=== PATIENT | male | born 1945 | race Caucasian/White ===

== ENCOUNTER 2017-05-26 11:53 | Observation (INO) | payer MEDICARE ==
[~2017-05-26] VITALS: Ht 188 cm; Wt 136.2 kg
[2017-05-26] VITALS (7 sets, daily range): BP systolic 129–183; BP diastolic 67–91; PULSE 62–69; RESP 17–20; TEMP 97.4–98.8; O2SAT 94–97
--- NOTE | 2017-05-26 12:46 | RADRPT ---
EXAM DATE/TIME: 05/26/2017 12:32 [place] COMPARISON: No previous studies available for comparison. INDICATIONS : Short of breath, lower leg pain x2 days. MEDICAL HISTORY : high cholesterol SURGICAL HISTORY : 2 coronary artery stents ENCOUNTER: Initial ACUITY: 2 days PAIN SCORE: 0/10 LOCATION: Bilateral chest FINDINGS: PA and lateral views of the chest demonstrate the lungs to be symmetrically aerated without evidence of mass, infiltrate or effusion. The cardiomediastinal contours are unremarkable. Osseous structure s are intact. CONCLUSION: 1. No acute cardiopulmonary disease. Kwan Jimenez MD on May 26, 2017 at 12:42 Board Certified Radiologist. This report was verified electronically.
[2017-05-26 12:50] LABS: AUTOMATED NEUTROPHIL # 7.4 TH/MM3 (1.8-7.7); BASOPHIL # 0.1 TH/MM3 (0-0.2); BASOPHIL % 0.6 % (0.0-2.0); EOSINOPHIL # 0.2 TH/MM3 (0-0.4); EOSINOPHIL % 2.3 % (0.0-4.0); HEMATOCRIT 27.9 % (39.0-51.0); HEMOGLOBIN 9.1 GM/DL (13.0-17.0); LYMPH % 15.8 % (9.0-44.0); LYMPHOCYTE # 1.6 TH/MM3 (1.0-4.8); MEAN CELL VOLUME 82.5 FL (80.0-100.0); MEAN CORPUSCULAR HGB CONC 32.7 % (32.0-36.0); MEAN PLATELET VOLUME 7.6 FL (7.0-11.0); MONO % 7.2 % (0.0-8.0); MONOCYTE # 0.7 TH/MM3 (0-0.9); NEUT % 74.1 % (16.0-70.0); PLATELET COUNT 271 TH/MM3 (150-450); RED BLOOD COUNT 3.38 MIL/MM3 (4.50-5.90); RED CELL DISTRIBUTION WIDTH 15.9 % (11.6-17.2)
[2017-05-26 12:56] LABS: PROTHROMBIN TIME - PATIENT 10.6 SEC (9.8-11.6)
[2017-05-26 13:04] LABS: BICARBONATE 23.9 MEQ/L (21.0-32.0); BLOOD UREA NITROGEN 15 MG/DL (7-18); CALCIUM 8.5 MG/DL (8.5-10.1); CHLORIDE 106 MEQ/L (98-107); CREATININE 1.07 MG/DL (0.60-1.30); GLOMERULAR FILTRATION RATE 68 ML/MIN (>89); GLUCOSE,RANDOM 149 MG/DL (74-106); SODIUM (NA) 139 MEQ/L (136-145)
[2017-05-26 13:08] LABS: TROPONIN I LESS THAN 0.02 NG/ML (0.02-0.05)
--- NOTE | 2017-05-26 13:38 | PD ---
HPI Chief Complaint: Respiratory Symptoms Time Seen by Provider: 13:34 Travel History International Travel<30 days: No Contact w/Intl Traveler<30days: No Traveled to known affect area: No History of Present Illness HPI 72-year-old male with history of CAD, stent 2 placed in February 2017, hypertension and diabetes presents to emergency department for evaluation of significant shortness of breath with any activity. Patient states he is visiting from [place]. He saw his sword swallower on Monday prior to leaving. He had mentioned to his sword swallower a twinge like pain in his chest while working out since his stents were placed. Party Plan Demonstrator increased his carvedilol to twice a day and the patient has been taking this all week. He states he noticed since beginning and twice today he developed some shortness of breath with activity that this morning when he got up he went to walk across the street to get breakfast and he had to stop several times due to being short of breath. He denies any pain. No nausea or vomiting. No cough or chest congestion. There is no sensation of lightheadedness. The patient states he has noticed a darkening of his stools over last 2 weeks. He attributed this to getting older. He denies any abdominal pain. No nausea or vomiting. No history GI bleed. Last colonoscopy was last year. He has no other symptoms to report at this time. PFSH Past Medical History Hx Anticoagulant Therapy: Yes Cardiovascular Problems: Yes High Cholesterol: Yes Diabetes: Yes Patient Takes Glucophage: No Hypertension: Yes Respiratory: Yes Past Surgical History Cardiac Surgery: Yes (STENT X 2 ) Other Surgery: Yes (AMPUTATION TO SOME TOES ) Social History Alcohol Use: Yes Tobacco Use: No Substance Use: No Allergies-Medications (Allergen,Severity, Reaction): Coded Allergies: No Known Allergies (Verified Allergy, Unknown, 05/26/17) Review of Systems Except as stated in HPI: all other systems reviewed are Neg Physical Exam Narrative GENERAL: Well-nourished elderly male patient, appears nontoxic sitting in bed in no acute distress. SKIN: Focused skin assessment warm/dry. HEAD: Atraumatic. Normocephalic. EYES: Pupils equal and round. No scleral icterus. No injection or drainage. ENT: No nasal bleeding or discharge. Mucous membranes pink and moist. NECK: Trachea midline. No JVD. CARDIOVASCULAR: Regular rate and rhythm. No murmur appreciated. RESPIRATORY: No accessory muscle use. Clear but diminished bases likely due to girth. Breath sounds equal bilaterally. GASTROINTESTINAL: Abdomen soft, non-tender, nondistended. Hepatic and splenic margins not palpable. Ventral hernia, soft RECTAL EXAM: No masses or tenderness, stool is dark black-brown. MUSCULOSKELETAL: No obvious deformities. No clubbing. No cyanosis. 2+ bilateral lower extremity edema. NEUROLOGICAL: Awake and alert. No obvious cranial nerve deficits. Motor grossly within normal limits. Normal speech. PSYCHIATRIC: Appropriate mood and affect; insight and judgment normal. Data Data Last Documented VS Vital Signs Date Time Temp Pulse Resp B/P (MAP) Pulse Ox O2 Delivery O2 Flow Rate FiO2 05/26/17 13:29 64 20 183/87 (119) 96 Room Air 05/26/17 11:56 98.0 Orders Orders Electrocardiogram (05/26/17 12:07) Complete Blood Count With Diff (05/26/17 12:07) Basic Metabolic Panel (Bmp) (05/26/17 12:07) Ckmb (Isoenzyme) Profile (05/26/17 12:07) Troponin I (05/26/17 12:07) Prothrombin Time / Inr (Pt) (05/26/17 12:07) Act Partial Throm Time (Ptt) (05/26/17 12:07) B-Type Natriuretic Peptide (05/26/17 12:07) Chest, Pa & Lat (05/26/17 12:07) CKMB (05/26/17 12:15) CKMB% (05/26/17 12:15) Type And Screen (05/26/17 14:00) Labs Laboratory Tests Test 05/26/17 12:15 White Blood Count 10.0 TH/MM3 Red Blood Count 3.38 MIL/MM3 Hemoglobin 9.1 GM/DL Hematocrit 27.9 % Mean Corpuscular Volume 82.5 FL Mean Corpuscular Hemoglobin 27.0 PG Mean Corpuscular Hemoglobin Concent 32.7 % Red Cell Distribution Width 15.9 % Platelet Count 271 TH/MM3 Mean Platelet Volume 7.6 FL Neutrophils (%) (Auto) 74.1 % Lymphocytes (%) (Auto) 15.8 % Monocytes (%) (Auto) 7.2 % Eosinophils (%) (Auto) 2.3 % Basophils (%) (Auto) 0.6 % Neutrophils # (Auto) 7.4 TH/MM3 Lymphocytes # (Auto) 1.6 TH/MM3 Monocytes # (Auto) 0.7 TH/MM3 Eosinophils # (Auto) 0.2 TH/MM3 Basophils # (Auto) 0.1 TH/MM3 CBC Comment DIFF FINAL Differential Comment Prothrombin Time 10.6 SEC Prothromb Time International Ratio 1.0 RATIO Activated Partial Thromboplast Time 29.2 SEC Blood Urea Nitrogen 15 MG/DL Creatinine 1.07 MG/DL Random Glucose 149 MG/DL Calcium Level 8.5 MG/DL Sodium Level 139 MEQ/L Potassium Level 4.0 MEQ/L Chloride Level 106 MEQ/L Carbon Dioxide Level 23.9 MEQ/L Anion Gap 9 MEQ/L Estimat Glomerular Filtration Rate 68 ML/MIN Total Creatine Kinase 114 U/L Creatine Kinase MB 1.7 NG/ML Troponin I LESS THAN 0.02 NG/ML B-Type Natriuretic Peptide 215 PG/ML MDM Medical Decision Making Medical Screen Exam Complete: Yes Emergency Medical Condition: Yes Medical Record Reviewed: Yes Differential Diagnosis CHF versus pneumonia versus electrolyte abnormality versus ACS versus PE versus GI bleed versus symptomatic anemia Narrative Course 72-year-old male presents to emergency department for evaluation of significant shortness of breath with any activity. He appears overall well. His vital signs are stable. At rest he feels completely asymptomatic. Stool is Hemoccult positive. Laboratory Tests Test 05/26/17 12:15 White Blood Count 10.0 TH/MM3 Red Blood Count 3.38 MIL/MM3 Hemoglobin 9.1 GM/DL Hematocrit 27.9 % Mean Corpuscular Volume 82.5 FL Mean Corpuscular Hemoglobin 27.0 PG Mean Corpuscular Hemoglobin Concent 32.7 % Red Cell Distribution Width 15.9 % Platelet Count 271 TH/MM3 Mean Platelet Volume 7.6 FL Neutrophils (%) (Auto) 74.1 % Lymphocytes (%) (Auto) 15.8 % Monocytes (%) (Auto) 7.2 % Eosinophils (%) (Auto) 2.3 % Basophils (%) (Auto) 0.6 % Neutrophils # (Auto) 7.4 TH/MM3 Lymphocytes # (Auto) 1.6 TH/MM3 Monocytes # (Auto) 0.7 TH/MM3 Eosinophils # (Auto) 0.2 TH/MM3 Basophils # (Auto) 0.1 TH/MM3 CBC Comment DIFF FINAL Differential Comment Prothrombin Time 10.6 SEC Prothromb Time International Ratio 1.0 RATIO Activated Partial Thromboplast Time 29.2 SEC Blood Urea Nitrogen 15 MG/DL Creatinine 1.07 MG/DL Random Glucose 149 MG/DL Calcium Level 8.5 MG/DL Sodium Level 139 MEQ/L Potassium Level 4.0 MEQ/L Chloride Level 106 MEQ/L Carbon Dioxide Level 23.9 MEQ/L Anion Gap 9 MEQ/L Estimat Glomerular Filtration Rate 68 ML/MIN Total Creatine Kinase 114 U/L Creatine Kinase MB 1.7 NG/ML Troponin I LESS THAN 0.02 NG/ML B-Type Natriuretic Peptide 215 PG/ML Last Impressions Chest X-Ray 05/26/17 1207 Signed Impressions: Service Date/Time: Friday, May 26, 2017 12:32 - CONCLUSION: 1. No acute cardiopulmonary disease. Kwan Jimenez MD Lab results and imaging studies are reviewed. Patient is found to have hemoglobin 9.1. We are uncertain of his baseline but this could be something to consider for his presenting symptoms. I have discussed the patient with my attending physician who is also assess the patient and reviewed the findings. Patient will be admitted observation for further evaluation. Diagnosis Primary Impression: Dyspnea on exertion Additional Impressions: Anemia Qualified Codes: D64.9 - Anemia, unspecified Heme positive stool Admitting Information Admitting Physician Requests: Observation Condition: Stable Yoanna Eduardo May 26, 2017 13:38
--- NOTE | 2017-05-26 14:30 | PD ---
Data Data Last Documented VS Vital Signs Date Time Temp Pulse Resp B/P (MAP) Pulse Ox O2 Delivery O2 Flow Rate FiO2 05/26/17 13:29 64 20 183/87 (119) 96 Room Air 05/26/17 11:56 98.0 Orders Orders Electrocardiogram (05/26/17 12:07) Complete Blood Count With Diff (05/26/17 12:07) Basic Metabolic Panel (Bmp) (05/26/17 12:07) Ckmb (Isoenzyme) Profile (05/26/17 12:07) Troponin I (05/26/17 12:07) Prothrombin Time / Inr (Pt) (05/26/17 12:07) Act Partial Throm Time (Ptt) (05/26/17 12:07) B-Type Natriuretic Peptide (05/26/17 12:07) Chest, Pa & Lat (05/26/17 12:07) CKMB (05/26/17 12:15) CKMB% (05/26/17 12:15) Type And Screen (05/26/17 14:00) Labs Laboratory Tests Test 05/26/17 12:15 White Blood Count 10.0 TH/MM3 Red Blood Count 3.38 MIL/MM3 Hemoglobin 9.1 GM/DL Hematocrit 27.9 % Mean Corpuscular Volume 82.5 FL Mean Corpuscular Hemoglobin 27.0 PG Mean Corpuscular Hemoglobin Concent 32.7 % Red Cell Distribution Width 15.9 % Platelet Count 271 TH/MM3 Mean Platelet Volume 7.6 FL Neutrophils (%) (Auto) 74.1 % Lymphocytes (%) (Auto) 15.8 % Monocytes (%) (Auto) 7.2 % Eosinophils (%) (Auto) 2.3 % Basophils (%) (Auto) 0.6 % Neutrophils # (Auto) 7.4 TH/MM3 Lymphocytes # (Auto) 1.6 TH/MM3 Monocytes # (Auto) 0.7 TH/MM3 Eosinophils # (Auto) 0.2 TH/MM3 Basophils # (Auto) 0.1 TH/MM3 CBC Comment DIFF FINAL Differential Comment Prothrombin Time 10.6 SEC Prothromb Time International Ratio 1.0 RATIO Activated Partial Thromboplast Time 29.2 SEC Blood Urea Nitrogen 15 MG/DL Creatinine 1.07 MG/DL Random Glucose 149 MG/DL Calcium Level 8.5 MG/DL Sodium Level 139 MEQ/L Potassium Level 4.0 MEQ/L Chloride Level 106 MEQ/L Carbon Dioxide Level 23.9 MEQ/L Anion Gap 9 MEQ/L Estimat Glomerular Filtration Rate 68 ML/MIN Total Creatine Kinase 114 U/L Creatine Kinase MB 1.7 NG/ML Troponin I LESS THAN 0.02 NG/ML B-Type Natriuretic Peptide 215 PG/ML MDM Supervised Visit with HAVEN: Yes Narrative Course The history, exam, and medical decision-making in the associated mid-level provider note were completed with my assistance. I reviewed and agree with the findings presented. I attest that I had a [id number] encounter with the patient on the same day, and personally performed and documented my assessment and findings in the medical record. *My assessment and Findings: 72-year-old man, history of CAD, on blood thinners, presents ED with worsening shortness of breath with exertion. Found to have some mild to moderate anemia with heme positive stools, possible cause of the symptoms. He also has had recent medication changes including increasing his beta-reno that could be related. Lastly, this could be an anginal equivalent but I think that is less likely. Diagnosis Primary Impression: Dyspnea on exertion Additional Impressions: Heme positive stool Anemia Qualified Codes: D64.9 - Anemia, unspecified Condition: Stable Robert Borges MD May 26, 2017 14:30
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
[2017-05-26] MEDS ORDERED: SODIUM CHLORIDE 0.9% FLUSH 10 ML FLUSH IV FLUSH PRN ×2 (15:00→16:00)
[2017-05-26] MEDS ORDERED: SODIUM CHLORIDE 0.9% FLUSH 10 ML FLUSH IV FLUSH SCH (15:00)
[2017-05-26] MEDS ORDERED: METR1GEL TOPICAL (15:39)
[2017-05-26] MEDS ORDERED: MULTTAB67 PO (15:39)
[2017-05-26] MEDS ORDERED: ASPI81TA16 PO (15:39)
[2017-05-26] MEDS ORDERED: AMLO5CAP PO (15:39)
[2017-05-26] MEDS ORDERED: CARV3.125 PO (15:39)
[2017-05-26] MEDS ORDERED: METF500T PO (15:39)
[2017-05-26] MEDS ORDERED: ISOS60TA PO (15:39)
[2017-05-26] MEDS ORDERED: LOVA10TA PO (15:39)
[2017-05-26] MEDS ORDERED: PRAS10TA PO (15:39)
[2017-05-26] MEDS ORDERED: IBUP200T47 PO (15:40)
[2017-05-26] MEDS ORDERED: NALOXONE HCL 0.4 MG/ML AMP IV PUSH PRN (16:00)
[2017-05-26] MEDS ORDERED: ONDANSETRON HCL 4 MG/2 ML VIAL IVP PRN (16:00)
[2017-05-26] MEDS ORDERED: NITROGLYCERIN 0.4 MG SL 25 TABS/BTL SL PRN (16:15)
[2017-05-26] MEDS ORDERED: MORPHINE SULFATE 4 MG/ML INJ IV PUSH PRN (16:15)
[2017-05-26] MEDS ORDERED: FUROSEMIDE 100 MG/10 ML VIAL IV PUSH ONE (16:15)
[2017-05-26] MEDS ORDERED: GLUCAGON 1 MG/ML VIAL OTHER PRN (16:30)
[2017-05-26] MEDS ORDERED: hydrALAZINE HCL 20 MG/ML VIAL IV PUSH PRN (16:30)
[2017-05-26] MEDS ORDERED: DEXTROSE 50% IN WATER 50 ML VIAL(D50) IV PUSH PRN (16:30)
[2017-05-26] MEDS ORDERED: NON-FORMULARY DRUG (Amlodipine-Benazepril 1 CAP) PO SCH (16:30)
[2017-05-26] MEDS: INSULIN ASPART SUPPLEMENTAL SCALE SQ SCH ×2 (17:00→21:32)
--- NOTE | 2017-05-26 17:23 | HHI.GIFU ---
GI Follow-up Note Consult Follow-up Subjective: Patient laying in bed comfortably, no new complaints except Objective: PHYSICAL EXAMINATION: Vitals signs stable No fever HEENT: Pupils round and reactive to light; normocephalic; atraumatic; no jaundice. Throat is clear. NECK: Neck is supple, no JVD, no lymphadenopathy. CHEST: Chest is clear to auscultation and percussion. CARDIAC: Regular rate and rhythm with no murmur gallop or rubs. ABDOMEN: Soft, nondistended, nontender; no hepatosplenomegaly; bowel sounds are present in all four quadrants. EXTREMITIES: No clubbing, cyanosis, or edema. SKIN: Normal; no rash; no jaundice. MEDART OPERATOR: No focal deficits; alert and oriented times three. Available Data (labs, X- Rays, Procedues) : ASSESSMENT/PLAN: Please see full dictation by ASSISTANT PROPERTY MANAGER. Egd planned for tomorrow. Monitor labs. Protonix. Thank you It was a pleasure seeing Christopher Marcum Thank you for this consult. Entered by: Apple Deluna MD May 26, 2017 17:23
[2017-05-26] MEDS: PANTOPRAZOLE SODIUM 40 MG VIAL IV PUSH SCH (17:52)
[2017-05-26] MEDS: PRAVASTATIN SOD 10 MG TAB PO SCH (17:52)
[2017-05-26] MEDS: ASPIRIN EC 81 MG TABEC PO SCH (17:52)
[2017-05-26] MEDS: ISOSORBIDE MONONITRATE 60 MG TAB PO SCH (17:52)
[2017-05-26] MEDS: SODIUM CHLORIDE 0.9% FLUSH 10 ML FLUSH IV FLUSH SCH (21:26)
[2017-05-26] MEDS: CARVEDILOL 3.125 MG TAB PO SCH (21:26)
--- NOTE | 2017-05-26 21:48 | HHI.HP ---
HPI Service Family Medicine Primary Care Physician Unknown Admission Diagnosis dyspnea on exertion; anemia Diagnoses: International Travel<30 Days: No Contact w/Intl Traveler<30days: No Known Affected Area: No History of Present Illness 72-year-old male presenting to the emergency department with progressive and significant shortness of breath with minimal activity. Patient has a history of coronary artery disease status post stent placement 2 in February 2017. He is on vacation from [place], he states that he saw his wool spotter 1 week ago and had mentioned that he was having some chest discomfort ever since his stent placement. At that point his wool spotter placed him on carvedilol twice a day and patient states that he has noticed some shortness of breath since that time one week ago. He has also noticed some dark/black in stools without overt red blood per rectum. He denies any abdominal pain, denies any nausea or vomiting, denies any chest pain or palpitations, denies any fevers or chills, denies any nausea or vomiting. He states that he did have a colonoscopy done in 2017 in which she had several polyps removed, but was told that it was otherwise normal. He denies significant NSAID or ibuprofen use. He is on antiplatelet medication including an aspirin and another antiplatelet such as Plavix or Effient, but he is unable to tell us what exactly he is on. He decided to come into the emergency department because he became significantly short of breath when trying to walk across the street for breakfast this morning. 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 Tobacco - As a kid, no reported history Alcohol - 1-2 beers per day, no withdrawal history Illicit - No reported history Physical Exam Vital Signs Vital Signs Date Time Temp Pulse Resp B/P (MAP) Pulse Ox O2 Delivery O2 Flow Rate FiO2 05/26/17 20:18 98.3 68 17 138/73 (94) 95 05/26/17 18:23 97.4 62 20 181/91 (121) 96 05/26/17 16:10 05/26/17 15:25 65 18 170/78 (108) 97 Room Air 05/26/17 13:29 64 20 183/87 (119) 96 Room Air 05/26/17 13:29 66 20 97 Room Air 05/26/17 11:56 98.0 67 20 139/67 (91) 95 Room Air Physical Exam General: Obese male in no obvious distress Skin: Warm and well-perfused with no obvious lesions HEENT: PERRL; normocephalic; atraumatic; no jaundice. CHEST: Chest is clear to auscultation and percussion. CARDIAC: Regular rate and rhythm with no murmur gallop or rubs. ABDOMEN: taut, protuberant, nontender; no hepatosplenomegaly; bowel sounds are present in all four quadrants. EXTREMITIES: No clubbing, cyanosis, + BLE pitting edema L>R RESIDENTIAL CAREGIVER: No focal deficits; alert and oriented times three. Laboratory Laboratory Tests Test 05/26/17 12:15 05/26/17 18:59 White Blood Count 10.0 Red Blood Count 3.38 Hemoglobin 9.1 Hematocrit 27.9 Mean Corpuscular Volume 82.5 Mean Corpuscular Hemoglobin 27.0 Mean Corpuscular Hemoglobin Concent 32.7 Red Cell Distribution Width 15.9 Platelet Count 271 Mean Platelet Volume 7.6 Neutrophils (%) (Auto) 74.1 Lymphocytes (%) (Auto) 15.8 Monocytes (%) (Auto) 7.2 Eosinophils (%) (Auto) 2.3 Basophils (%) (Auto) 0.6 Neutrophils # (Auto) 7.4 Lymphocytes # (Auto) 1.6 Monocytes # (Auto) 0.7 Eosinophils # (Auto) 0.2 Basophils # (Auto) 0.1 CBC Comment DIFF FINAL Differential Comment Prothrombin Time 10.6 Prothromb Time International Ratio 1.0 Activated Partial Thromboplast Time 29.2 Blood Urea Nitrogen 15 Creatinine 1.07 Random Glucose 149 Calcium Level 8.5 Sodium Level 139 Potassium Level 4.0 Chloride Level 106 Carbon Dioxide Level 23.9 Anion Gap 9 Estimat Glomerular Filtration Rate 68 Total Creatine Kinase 114 Creatine Kinase MB 1.7 Troponin I LESS THAN 0.02 LESS THAN 0.02 B-Type Natriuretic Peptide 215 Result Diagram: 05/26/17 1215 05/26/17 1215 Imaging Last 24 hours Impressions Chest X-Ray 05/26/17 1207 Signed Impressions: Service Date/Time: Friday, May 26, 2017 12:32 - CONCLUSION: 1. No acute cardiopulmonary disease. MD Negin Arnold VTE Risk Assessment Negin VTE Risk Assessment: Mod/High Risk (score >= 2) VTE Pharm Contraindication: Active bleeding Negin Risk Assessment Model Point Value = 1 Point Value = 2 Point Value = 3 Point Value = 5 Age 41-60 Minor surgery BMI > 25 kg/m2 Swollen legs Varicose veins or History of unexplained or recurrent spontaneous Oral contraceptives or hormone replacement Sepsis (< 1 month) Serious lung disease, including pneumonia (< 1 month) Abnormal pulmonary function Acute myocardial infarction Congestive heart failure (< 1 month) History of inflammatory bowel disease Medical patient at bed rest Age 61-74 Arthroscopic surgery Major open surgery (> 45 min) Laparoscopic surgery (> 45 min) Malignancy Confined to bed (> 72 hours) Immobilizing plaster cast Central venous access Age >= 75 History of VTE Family history of VTE Factor V Leiden Prothrombin [id number] Lupus anticoagulant Anticardiolipin antibodies Elevated serum homocysteine Heparin-induced thrombocytopenia Other congenital or acquired thrombophilia Stroke (< 1 month) Elective arthroplasty Hip, pelvis, or leg fracture Acute spinal cord injury (< 1 month) Prophylaxis Regimen Total Risk Factor Score Risk Level Prophylaxis Regimen 0-1 Low Early ambulation 2 Moderate Order ONE of the following: *Sequential Compression Device (SCD) *Heparin 5000 units SQ BID 3-4 Higher Order ONE of the following medications: *Heparin 5000 units SQ TID *Enoxaparin/Lovenox 40 mg SQ daily (WT < 150 kg, CrCl > 30 mL/min) *Enoxaparin/Lovenox 30 mg SQ daily (WT < 150 kg, CrCl > 10-29 mL/min) *Enoxaparin/Lovenox 30 mg SQ BID (WT < 150 kg, CrCl > 30 mL/min) AND/OR *Sequential Compression Device (SCD) 5 or more Highest Order ONE of the following medications: *Heparin 5000 units SQ TID (Preferred with Epidurals) *Enoxaparin/Lovenox 40 mg SQ daily (WT < 150 kg, CrCl > 30 mL/min) *Enoxaparin/Lovenox 30 mg SQ daily (WT < 150 kg, CrCl > 10-29 mL/min) *Enoxaparin/Lovenox 30 mg SQ BID (WT < 150 kg, CrCl > 30 mL/min) AND *Sequential Compression Device (SCD) Assessment and Plan Assessment and Plan 72-year-old male presenting to the emergency department with anemia and dyspnea on exertion Problem List: (1) Dyspnea on exertion ICD Codes: R06.09 - Other forms of dyspnea Status: Acute Plan: ACS secondary to CAD versus symptomatic anemia Trend cardiac troponins and EKGs Monitor on telemetry -Continue home statin -Obtain lipid level -Obtain 2D echocardiogram -Continue home beta-reno, calcium channel reno, and Imdur Anemia workup to include serial hemoglobin levels GI consult for EGD for possible upper GI bleed -IV Protonix -Transfuse PRBCs as needed -Stool Hemoccult positive -Avoid gastric irritants (2) Coronary artery disease ICD Codes: I25.10 - Atherosclerotic heart disease of [place] coronary artery without angina pectoris Plan: Continue home statin as well as beta-reno and calcium channel reno and Imdur -Obtain lipid panel -Serial troponins and EKGs as above -Holding antiplatelets due to possible GI bleed (3) Anemia ICD Codes: D64.9 - Anemia, unspecified Status: Acute Plan: Hemoglobin 9.1 on arrival with unknown baseline -Monitor serial CBCs and transfuse as needed -IV Protonix GI consulted, patient have EGD in the morning (4) Hypertension ICD Codes: I10 - Essential (primary) hypertension Plan: Continue home medications and monitor vitals (5) Heme positive stool ICD Codes: R19.5 - Other fecal abnormalities Status: Acute (6) Diabetes mellitus type 2 in obese ICD Codes: E11.69 - Type 2 diabetes mellitus with other specified complication ; E66.9 - Obesity, unspecified Plan: Q. before meals Accu-Cheks and sliding scale insulin (7) Hyperlipidemia ICD Codes: E78.5 - Hyperlipidemia, unspecified Plan: Continue home statin and check lipid panel Problem Qualifiers (1) Anemia: Qualified Codes: D64.9 - Anemia, unspecified Prabhu Alvarez MD May 26, 2017 21:48
[2017-05-26 21:56] LABS: HEMATOCRIT 27.2 % (39.0-51.0)
[2017-05-27 01:43] LABS: HEMATOCRIT 28.1 % (39.0-51.0); HEMOGLOBIN 9.2 GM/DL (13.0-17.0)
[2017-05-27 03:33] VITALS: BP 146/70; PULSE 63; RESP 16; TEMP 97.8; O2SAT 97
[2017-05-27] MEDS ORDERED: POVIDONE IODINE 5% (ANTISEPSIS KIT) 4 APPLICATIONS EACH NARE PRN (04:00)
[2017-05-27] MEDS ORDERED: SODIUM CHLORID 0.9% 500 ML IV PRN (04:00)
[2017-05-27] MEDS ORDERED: CHLORHEXIDINE GLUCONATE 2 % 1 PACK (2 CLOTHS) TOPICAL PRN (04:00)
[2017-05-27] MEDS ORDERED: LACTATED RINGER'S 1000 ML IV PRN (04:00)
[2017-05-27] MEDS: PANTOPRAZOLE SODIUM 40 MG VIAL IV PUSH SCH (04:17)
[2017-05-27 04:49] VITALS: PULSE 66
[2017-05-27 06:38] LABS: AUTOMATED NEUTROPHIL # 4.4 TH/MM3 (1.8-7.7); BASOPHIL % 0.4 % (0.0-2.0); EOSINOPHIL # 0.2 TH/MM3 (0-0.4); EOSINOPHIL % 3.4 % (0.0-4.0); HEMATOCRIT 26.1 % (39.0-51.0); HEMOGLOBIN 8.9 GM/DL (13.0-17.0); LYMPH % 19.4 % (9.0-44.0); LYMPHOCYTE # 1.2 TH/MM3 (1.0-4.8); MEAN CELL VOLUME 81.1 FL (80.0-100.0); MEAN CORPUSCULAR HEMOGLOBIN 27.7 PG (27.0-34.0); MEAN CORPUSCULAR HGB CONC 34.2 % (32.0-36.0); MEAN PLATELET VOLUME 7.7 FL (7.0-11.0); MONO % 8.6 % (0.0-8.0); MONOCYTE # 0.6 TH/MM3 (0-0.9); NEUT % 68.2 % (16.0-70.0); PLATELET COUNT 260 TH/MM3 (150-450); RED BLOOD COUNT 3.22 MIL/MM3 (4.50-5.90); RED CELL DISTRIBUTION WIDTH 15.9 % (11.6-17.2); WHITE BLOOD COUNT 6.4 TH/MM3 (4.0-11.0)
[2017-05-27 06:49] LABS: BICARBONATE 25.5 MEQ/L (21.0-32.0); CALCIUM 8.1 MG/DL (8.5-10.1); CREATININE 1.18 MG/DL (0.60-1.30)
[2017-05-27 06:52] LABS: CHOLESTEROL/ HDL RATIO 3.21 RATIO; HDL CHOLESTEROL 30.2 MG/DL (40.0-60.0)
[2017-05-27 07:24] VITALS: PULSE 64
[2017-05-27] MEDS: INSULIN ASPART SUPPLEMENTAL SCALE SQ SCH (08:00)
[2017-05-27 08:05] VITALS: O2SAT 92
[2017-05-27] MEDS: CARVEDILOL 3.125 MG TAB PO SCH (08:46)
[2017-05-27] MEDS: ASPIRIN EC 81 MG TABEC PO SCH (08:47)
[2017-05-27] MEDS: PRAVASTATIN SOD 10 MG TAB PO SCH (08:47)
[2017-05-27] MEDS: SODIUM CHLORIDE 0.9% FLUSH 10 ML FLUSH IV FLUSH SCH (08:47)
[2017-05-27] MEDS: ISOSORBIDE MONONITRATE 60 MG TAB PO SCH (08:47)
[2017-05-27] MEDS ORDERED: LISINOPRIL 10 MG TAB PO SCH (09:00)
[2017-05-27] MEDS ORDERED: amLODIPine BESYLATE 5 MG TAB PO SCH (09:00)
--- NOTE | 2017-05-27 09:11 | HHI.FPPN ---
Subjective Remarks No acute issues overnight. Vitals are stable, patient remains afebrile. He denies any chest pain, shortness of breath, fever, chills, nausea, vomiting or abdominal pain. He continues to feel slightly weak with ambulation. He is scheduled for an EGD this AM. (Brigette Peters MD, R3) Objective Vitals Vital Signs Date Time Temp Pulse Resp B/P (MAP) Pulse Ox O2 Delivery O2 Flow Rate FiO2 05/27/17 08:05 92 21 05/27/17 07:24 64 05/27/17 04:49 66 05/27/17 03:33 97.8 63 16 146/70 (95) 97 05/26/17 22:52 98.8 69 17 129/68 (88) 94 05/26/17 22:42 65 05/26/17 20:18 98.3 68 17 138/73 (94) 95 05/26/17 18:23 97.4 62 20 181/91 (121) 96 05/26/17 16:10 05/26/17 15:25 65 18 170/78 (108) 97 Room Air 05/26/17 13:29 64 20 183/87 (119) 96 Room Air 05/26/17 13:29 66 20 97 Room Air 05/26/17 11:56 98.0 67 20 139/67 (91) 95 Room Air (Brigette Peters MD, R3) Result Diagram: 05/27/17 0543 05/27/17 0543 Imaging Last Impressions Chest X-Ray 05/26/17 1207 Signed Impressions: Service Date/Time: Friday, May 26, 2017 12:32 - CONCLUSION: 1. No acute cardiopulmonary disease. Kwan Jimenez MD Objective Remarks General: Obese male sitting up comfortably in bed in no obvious distress Skin: Warm and well-perfused with no obvious lesions HEENT: PERRL; normocephalic; atraumatic; no jaundice. CHEST: Chest is clear to auscultation and percussion. CARDIAC: Regular rate and rhythm with no murmur gallop or rubs. PULMONARY: CTA bilaterally, no wheezes or rales. ABDOMEN: soft, protuberant, nontender; no hepatosplenomegaly; bowel sounds are present in all four quadrants. EXTREMITIES: No clubbing, cyanosis, + BLE pitting edema L>R DIRECTOR SUPPLY CHAIN: No focal deficits; alert and oriented times three. (Brigette Peters MD, R3) A/P Assessment and Plan Mr. Marcum is a 72 y/o M who presented with dyspnea on exertion and was found to have anemia possibly related to an upper GI bleed. Discharge Planning Anticipate discharge home today or tomorrow pending EGD and echo. (Brigette Peters MD, R3) Attending Attestation Pt. examined and case discussed with resident physicians. I have read the above note and agree with the assessment and plan as discussed with me. I was involved in all medical decision making for this patient. Prabhu Alvarez MD (Prabhu Alvarez MD) Problem List: (1) Dyspnea on exertion ICD Codes: R06.09 - Other forms of dyspnea Status: Acute Plan: Likely secondary to anemia secondary to possible upper GI bleed vs. CHF -ACS ruled out with normal serial troponins and EKGs -Echocardiogram pending -Telemetry showing no acute events -Continue Lovastatin, Carvedilol, Amlodipine-benazepril, isosorbide mononitrate , aspirin, and lovastatin -Hold prasugrel (2) Anemia ICD Codes: D64.9 - Anemia, unspecified Status: Acute Plan: Anemia possibly secondary to upper GI bleed -Hemoccult positive per ED staff -GI consult- plan for EGD this AM -IV Protonix BID -Trending H/H -Transfuse PRBC at hemoglobin <8 due to ACS (3) Coronary artery disease ICD Codes: I25.10 - Atherosclerotic heart disease of [place] coronary artery without angina pectoris Status: Chronic Plan: -Continue daily aspirin, carvedilol, and isosorbide mononitrate -Hold Effient (4) Hyperlipidemia ICD Codes: E78.5 - Hyperlipidemia, unspecified Status: Chronic Plan: -Continue statin (5) Hypertension ICD Codes: I10 - Essential (primary) hypertension Status: Chronic Plan: -Continue carvedilol, amlodipine-benazepril (6) Diabetes mellitus type 2 in obese ICD Codes: E11.69 - Type 2 diabetes mellitus with other specified complication ; E66.9 - Obesity, unspecified Status: Chronic Plan: -Hold metformin -Sliding-scale insulin per protocol (7) Nutrition, metabolism, and development symptoms ICD Codes: R63.8 - Other symptoms and signs concerning food and fluid intake Status: Acute Plan: -Diet: NPO in anticipation of EGD -Fluids: Tolerating fluids well by mouth -Electrolytes: Within normal limits, continue to monitor (8) No contraindication to deep vein thrombosis (DVT) prophylaxis ICD Codes: Z78.9 - Other specified health status Status: Acute Plan: -Hold pharmacological DVT prophylaxis for possible GI bleed -SCDs (Brigette Peters MD, R3) Problem Qualifiers (1) Anemia: Qualified Codes: D64.9 - Anemia, unspecified (2) Coronary artery disease: Qualified Codes: I25.10 - Atherosclerotic heart disease of [place] coronary artery without angina pectoris (3) Hyperlipidemia: Qualified Codes: E78.4 - Other hyperlipidemia (4) Hypertension: Qualified Codes: I10 - Essential (primary) hypertension Brigette Peters MD, R3 May 27, 2017 09:11 Prabhu Alvarez MD May 27, 2017 19:01
[2017-05-27] MEDS ORDERED: FUROSEMIDE 20 MG TAB PO SCH (09:15)
[2017-05-27 09:35] VITALS: BP 148/69; PULSE 70; RESP 20; TEMP 97.9; O2SAT 96
--- NOTE | 2017-05-27 09:43 | GIPROC ---
[facility] [address] [facility]. [facility], [address] EGD PROCEDURE REPORT EXAM DATE: 05/27/2017 PATIENT NAME: Christopher Marcum MR #: [id number] BIRTHDATE: 1945 ATTENDING: Apple Dean MD ORDER #: [id number] PARTS CATALOGER: Shaquille Timmons and Mel Mccauley STATUS: inpatient INDICATIONS: The patient is a 72 yr old male here for an EGD due to iron deficiency anemia and melena PROCEDURE PERFORMED: EGD w/ biopsy MEDICATIONS: None and Per Anesthesia. TOPICAL ANESTHETIC: CONSENT: The patient understands the risks and benefits of the procedure and understands that these risks include, but are not limited to: sedation, allergic reaction, infection, perforation and/or bleeding. Alternative means of evaluation and treatment include, among others: physical exam, x-rays, and/or surgical intervention. The patient elects to proceed with this endoscopic procedure. medical equipment was checked for proper function. Hand hygiene and appropriate measures for infection prevention was taken. After the risks, benefits and alternatives of the procedure were thoroughly explained, Informed consent was verified, confirmed and timeout was successfully executed by the treatment team. The patient was anesthetized with topical anesthesia and the Pentax EG-[id number] endoscope was introduced through the mouth and advanced to the second portion of the duodenum. Retroflexed views revealed no abnormalities The gastroscope was then slowly withdrawn and removed. ESOPHAGUS: The mucosa of the esophagus appeared normal. STOMACH: There was erythematous moderate gastritis in the gastric antrum. A biopsy was performed using cold forceps. Sample sent for histology. DUODENUM: The duodenal mucosa appeared normal. ADVERSE EVENTS: There were no complications. IMPRESSIONS: 1. The esophagus appeared normal 2. There was erythematous gastritis in the gastric antrum; biopsy was performed 3. Normal duodenal mucosa 4. Retroflexed views revealed no abnormalities RECOMMENDATIONS: 1. Await biopsy results. Biopsy results will not be ready for 7-10 days. If you don't hear from us in two weeks, call our office for biopsy results. 2. Anti-reflux regimen 3. Continue PPI 4. Avoid NSAIDS 5. Colonoscopy PATIENT CONDITION: stable DISPOSITION: Inpatient REPEAT EXAM: Return 1 year EGD pending biopsy results Apple Dean MD eSigned: Apple Dean MD 05/27/2017 9:43 AM cc: PATIENT NAME: Christopher Marcum MR#: [id number]
[2017-05-27] MEDS ORDERED: FURO20TA PO (10:12)
--- NOTE | 2017-05-27 10:14 | HHI.DCPOC ---
Discharge Care Plan Diagnosis: (1) Diabetes mellitus type 2 in obese (2) Coronary artery disease (3) Anemia (4) Hypertension (5) Heme positive stool Goals to Promote Your Health * To prevent worsening of your condition and complications * To maintain your health at the optimal level Directions to Meet Your Goals Take your medications as prescribed Follow your dietary instruction Follow activity as directed Keep your appointments as scheduled Take your immunizations and boosters as scheduled If your symptoms worsen call your PCP, if no PCP go to Urgent Care Center or Emergency Room Smoking is Dangerous to Your Health. Avoid second hand smoke Call the 24-hour hour crisis hotline for domestic abuse at Ashlie Wilkinson MD R1 May 27, 2017 10:14
[2017-05-27 11:16] LABS: HEMATOCRIT 28.6 % (39.0-51.0); HEMOGLOBIN 9.4 GM/DL (13.0-17.0)
[2017-05-27] MEDS ORDERED: LIDOCAINE HCL 1% PF 5 ML SYRINGE OTHER ONE (12:00)
[2017-05-27] MEDS ORDERED: PROPOFOL 200 MG/20 ML AMP IV ONE (12:00)
[2017-05-27 12:05] VITALS: BP 120/60; PULSE 68; RESP 20; TEMP 98.2; O2SAT 96
--- NOTE | 2017-05-27 14:41 | ECHRPT ---
Indication: sob CONCLUSIONS Normal left ventricular size. The left ventricular systolic function is normal with an estimated ejection fraction in the range of 55-60%. Mild mitral valve regurgitation. No aortic valve regurgitation. No aortic valve stenosis. There is mild tricuspid valve regurgitation. The pulmonary valve is not well visualized. BP: / HR: Rhythm: MEASUREMENTS (Male / Female) Normal Values Technical Quality:Fair 2D ECHO LV Diastolic Diameter PLAX 5.4 cm 4.2 - 5.9 / 3.9 - 5.3 cm LV Systolic Diameter PLAX 4.1 cm IVS Diastolic Thickness 1.5 cm 0.6 - 1.0 / 0.6 - 0.9 cm LVPW Diastolic Thickness 1.0 cm 0.6 - 1.0 / 0.6 - 0.9 cm LV Relative Wall Thickness 0.5 RV Internal Dim ED PLAX 3.4 cm M-MODE Aortic Root Diameter MM 3.0 cm LA Systolic Diameter MM 4.2 cm LA Ao Ratio MM 1.4 AV Cusp Separation MM 2.2 cm DOPPLER Mitral E Point Velocity 77.5 cm/s Mitral A Point Velocity 75.5 cm/s Mitral E to A Ratio 1.0 LV E' Lateral Velocity 8.5 cm/s Mitral E to LV E' Lateral Ratio 9.1 LV E' Septal Velocity 7.5 cm/s Mitral E to LV E' Septal Ratio 10.3 FINDINGS LEFT VENTRICLE Normal left ventricular size. The left ventricular systolic function is normal with an estimated ejection fraction in the range of 55-60%. RIGHT VENTRICLE Normal right ventricular size and systolic function. LEFT ATRIUM The left atrial size is normal. RIGHT ATRIUM The right atrial size is normal. ATRIAL SEPTUM Normal atrial septal thickness without atrial level shunting by limited color doppler interrogation. AORTA The aortic root and proximal ascending aorta are normal in size on limited imaging. MITRAL VALVE Structurally normal mitral valve. Mild mitral valve regurgitation. AORTIC VALVE Trileaflet aortic valve. No aortic valve regurgitation. No aortic valve stenosis. TRICUSPID VALVE Structurally normal tricuspid valve. There is mild tricuspid valve regurgitation. PULMONARY VALVE The pulmonary valve is not well visualized. VESSELS The inferior vena cava is normal in size. PERICARDIUM No pericardial effusion. Philippe Hernandez MD (Electronically Signed) Final Date:27 May 2017 14:40
--- NOTE | 2017-05-27 15:25 | EKG ---
Date Performed: 05/26/2017 Time Performed: 12:17:41 PTAGE: 72 years EKG: Sinus rhythm WITH FIRST DEGREE AV BLOCK MARKED LEFT AXIS DEVIATION INTRAVENTRICULAR CONDUCTION DELAY POSSIBLE LEF T VENTRICULAR HYPERTROPHY POSSIBLE SEPTAL MYOCARDIAL INFARCTION ABNORMAL ECG NO PREVIOUS TRACING DOCTOR: Pancho Burns Interpretating Date/Time 05/27/2017 15:23:06
--- NOTE | 2017-05-27 15:25 | EKG ---
Date Performed: 05/26/2017 Time Performed: 23:52:42 PTAGE: 72 years EKG: Sinus rhythm WITH FIRST DEGREE AV BLOCK MARKED LEFT AXIS DEVIATION POSSIBLE RIGHT VENTRICULAR CONDUCTION DELAY PO SSIBLE LEFT VENTRICULAR HYPERTROPHY NONSPECIFIC T-WAVE ABNORMALITY ABNORMAL ECG Since PREVIOUS TRACING , no significant change noted PREVIOUS TRACIN05/26/2017 18.31 DOCTOR: Pancho Burns Interpretating Date/Time 05/27/2017 15:23:59
--- NOTE | 2017-05-27 15:25 | EKG ---
Date Performed: 05/26/2017 Time Performed: 18:31:53 PTAGE: 72 years EKG: Sinus rhythm WITH FIRST DEGREE AV BLOCK MARKED LEFT AXIS DEVIATION INTRAVENTRICULAR CONDUCTION DELAY ABNORMAL ECG Since PREVIOUS TRACING , no significant change noted PREVIOUS TRACIN05/26/2017 12.17 DOCTOR: Pancho Burns Interpretating Date/Time 05/27/2017 15:23:35
== END 2017-05-27 22:15 | disposition home or self-care (01) ==
LOC: NEPE 11:53 → NEDA 14:47 → NEPFCDU 16:07
PROVIDERS: ADMIT Family Medicine; ATTEND Family Medicine
DX: D64.9 Anemia, unspecified (principal); E11.69 Type 2 diabetes mellitus with other specified complication; K29.70 Gastritis, unspecified, without bleeding; I10 Essential (primary) hypertension; I25.10 Atherosclerotic heart disease of native coronary artery without angina pectoris; E78.4 Other hyperlipidemia; E66.9 Obesity, unspecified; R94.31 Abnormal electrocardiogram [ECG] [EKG]; Z95.5 Presence of coronary angioplasty implant and graft; Z96.651 Presence of right artificial knee joint; Z68.38 Body mass index [BMI] 38.0-38.9, adult
CPT/HCPCS: 00731; 43239; 71046; 80048; 80061; 82550; 82552; 82948; 83880; 84484; 85014; 85018; 85025; 85610; 85730; 86850; 86900; 86901; 88305; 93005; 93306; 94150; 96372; 96374; 96375; 96376; 99285; C9113; G0378; J1815; J1940